=== PATIENT | female | born 1985 | race African-American/Black ===

== ENCOUNTER 2017-08-03 08:14 | Day surgery (SDC) | payer BC ==
[2017-02-15 13:41] VITALS: BMI 20.8
[~2017-08-03] VITALS: Ht 162.6 cm; Wt 53.3 kg
[2017-08-03] VITALS (17 sets, daily range): BP systolic 109–162; BP diastolic 69–109; PULSE 81–154; RESP 15–18; Ht 162.6 cm; Wt 53.3 kg
[2017-08-03] MEDS ORDERED: LOSA100T7 PO (08:41)
[2017-08-03] MEDS ORDERED: NIFE90TA11 PO (08:41)
[2017-08-03] MEDS ORDERED: CLON-379 PO (08:42)
[2017-08-03] MEDS ORDERED: LEVE500T8 PO (08:42)
[2017-08-03] MEDS ORDERED: CALC667C PO (08:43)
[2017-08-03] MEDS ORDERED: CNC30T PO (08:43)
[2017-08-03] MEDS ORDERED: POLYMYXIN/BACITRACIN 1L IRRIG ONE (09:06)
[2017-08-03] MEDS ORDERED: GELATIN SIZE 100 SPONGE ONE (09:06)
[2017-08-03] MEDS ORDERED: THROMBIN 5000 UNIT VIAL ONE (09:06)
[2017-08-03] MEDS ORDERED: HEPARIN 1000 UNITS/ML 10 ML INJ ONE ×2 (09:07→10:25)
[2017-08-03] MEDS ORDERED: MIDAZOLAM 1 MG/ML 2 ML INJ ONE (09:43)
[2017-08-03] MEDS ORDERED: CEFAZOLIN 1 GM INJ ONE (09:43)
[2017-08-03] MEDS ORDERED: FENTAnyl 50 MCG/ML VIAL ONE (09:43)
[2017-08-03] MEDS ORDERED: ROPIVACAINE 0.5 % 30 ML VIAL ONE ×2 (09:43→09:55)
[2017-08-03] MEDS ORDERED: PROPOFOL 20 ML ONE ×2 (09:43→10:43)
[2017-08-03] MEDS ORDERED: DIPHENHYDRAMINE 50 MG INJ ONE (10:04)
[2017-08-03] MEDS ORDERED: hydrALAzine 20 MG INJ ONE (10:06)
[2017-08-03] MEDS ORDERED: LABETALOL HCL 20MG INJ ONE (10:06)
[2017-08-03] MEDS ORDERED: LIDOCAINE 1% (STERILE-PAK) 30 ML INJ ONE (10:18)
[2017-08-03] MEDS ORDERED: METOCLOPRAMIDE 10 MG INJ ONE (10:33)
[2017-08-03] MEDS ORDERED: ONDANSETRON 4 MG INJ ONE (10:33)
[2017-08-03] MEDS ORDERED: DEXAMETHASONE 4 MG/ML 1 ML INJ ONE (10:43)
--- NOTE | 2017-08-03 10:48 | OPR ---
Date/Time of Note Date/Time of Note DATE: 08/03/17 TIME: 10:46 Operative Report Procedure Date: Aug 03, 2017 Preoperative Diagnosis ESRD Postoperative Diagnosis Same Operation/Procedure Performed LUE AVF Surgeon see signature line Tail Board Man None Anesthesia Type: MAC Estimated Blood Loss: minimal Transfusion none Specimen None Grafts/Implants none Complications none Disposition: PACU Procedure Description Dictated JACQUELYN DSOUZA MD Aug 03, 2017 10:48
[2017-08-03] MEDS ORDERED: morphine (1 MG/ML) 10ML SYRINGE IV PRN ×2 (11:00)
[2017-08-03] MEDS ORDERED: DIPHENHYDRAMINE 50 MG INJ IV PRN (11:00)
[2017-08-03] MEDS ORDERED: OXYCODONE/ACETAMINOPHEN (5/325) TAB PO PRN (11:00)
[2017-08-03] MEDS ORDERED: EPHEDrine SULFATE 50 MG/5 ML SYG IV PRN (11:00)
[2017-08-03] MEDS ORDERED: hydrALAzine 20 MG INJ IV PRN (11:00)
[2017-08-03] MEDS ORDERED: LABETALOL HCL 20MG INJ IV PRN (11:00)
[2017-08-03] MEDS ORDERED: ONDANSETRON 4 MG INJ IV PRN (11:00)
[2017-08-03] MEDS ORDERED: FENTAnyl 50 MCG/ML VIAL IV PRN ×2 (11:00)
[2017-08-03] MEDS ORDERED: MEPERIDINE 25 MG INJ IV PRN (11:00)
[2017-08-03] MEDS ORDERED: HYDROmorphONE 0.2 MG/ML PCA IV SCH (13:30)
--- NOTE | 2017-08-09 14:30 | OPR ---
DATE OF OPERATION: PREOPERATIVE DIAGNOSIS: End-stage renal disease. POSTOPERATIVE DIAGNOSIS: End-stage renal disease. PROCEDURE: Left upper extremity brachiocephalic AV fistula. SURGEON: Huber Cagle MD. ANESTHESIA: Local plus IV sedation. CONSENT: Risks, benefits, complications, alternative therapies explained to the patient and the [facility] consent obtained. OPERATIVE TECHNIQUE: The patient was placed in supine position, prepped and draped in usual sterile fashion, 1% lidocaine was used throughout the operation for local anesthesia. A 4 cm incision was made, one fingerbreadth distal to the left antecubital fossa. Incision was taken down to the subcut aneous tissue which was then opened using electrocautery. Left brachiocephalic vein and brachial ar smiley were identified. Vesseloops were passed around them. The vein was transected distally injecte d with heparinized saline. The patient was given 5000 units of IV heparin. The vein was anastomose d in an end-to-side fashion to the brachial artery, 7-0 Prolene in continuous suture technique. A 5 mm arteriotomy. The wound was irrigated and closed in 2 layers of 2-0 Vicryl suture for the deep, 3-0 Vicryl suture for running subcuticular skin closure. The patient tolerated procedure well. Dictated By: HUBER RAY/TAMIKO Conf#: [id number] DID#: [id number]
== END 2017-08-03 13:30 | disposition home or self-care (01) ==
LOC: SDS 08:14
PROVIDERS: ATTEND Thoracic Surgery (Cardiothoracic Vascular Surgery)
DX: Z45.2 Encounter for adjustment and management of vascular access device (principal); N18.6 End stage renal disease; I12.0 Hypertensive chronic kidney disease with stage 5 chronic kidney disease or end stage renal disease
CPT/HCPCS: 36821; 84132; 84703; J0360; J0690; J1100; J1200; J1644; J2250; J2405; J2765; J2795; J3010; Z7512; Z7610; C1725

== ENCOUNTER 2017-12-05 10:59 | Day surgery (SDC) | END 2017-12-05 15:30 | disposition home or self-care (01) ==